=== PATIENT | female | born 1950 | race Caucasian/White ===

== ENCOUNTER 2025-02-22 11:24 | Outpatient (CLI) | payer MEDICARE ==
--- NOTE | 2025-02-22 13:59 | RADIOLOGY REPORT ---
CLINICAL HISTORY: Right knee pain. Unilateral primary osteoarthritis. COMPARISON: None TECHNIQUE: Multisequence multiplanar MRI images of the right knee were obtained without contrast. FINDINGS: Cruciate ligaments: ACL and PCL are intact. Extensor mechanism: Quadriceps mechanism and patellar tendon are intact. Mild edema in the superior l ateral aspect of Hoffa's fat pad, may be seen with impingement. Collateral ligaments: Medial and lateral collateral ligaments are intact and otherwise unremarkable. Menisci: Prominent intrasubstance signal in the body of the medial meniscus extending to the free edg e and femoral articular surfaces, consistent with horizontal tear. There is a longitudinal tear in th e body of the medial meniscus extending to the tibial articular surface, with blunting of the free ed ge of the body of the medial meniscus more anteriorly near the body/anterior horn junction, possible superimposed free edge tear. Cartilage: Chondral thinning in the medial and lateral compartments with superimposed chondral frayin g and [id number] fissuring. Chondral thinning in the patella with superimposed chondral fissuri ng near the median ridge and mild subchondral cystic change.. Bones: No acute fracture or focal marrow contusion. Joint fluid: Small joint effusion. Mildly thickened suprapatellar plica. Other: Popliteal cyst measures up to 4 cm in greatest dimension. IMPRESSION: 1. Horizontal tear in the body of the lateral meniscus. 2. Longitudinal tear in the body of the medial meniscus with adjacent blunting of the free edge more anteriorly in the body of the medial meniscus, possible adjacent free edge tear. 3. Edema in the superolateral aspect of Hoffa's fat pad, may be seen with impingement. 4. Tricompartmental chondromalacia as described above. 5. Small joint effusion. 6. Popliteal cyst.
--- NOTE | 2025-02-22 17:40 | RADIOLOGY REPORT ---
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 FINDINGS: Grade 1 anterolisthesis of L4 on L5. There are degenerative endplate changes including modic endpla te changes with anterior and lateral osteophytes throughout the lumbar spine. The visualized distal s colten cord and conus medullaris are within normal limits. The conus medullaris appears to terminate within normal limits. The visualized retroperitoneal and paraspinal soft tissues are unremarkable. The following axial levels are detailed below: T12-L1: Unremarkable. L1-L2: There is a mild circumferential disc bulge. No significant central canal or neuroforaminal s tenosis. L2-L3: There is a moderate circumferential disc bulge complicated by facet arthropathy associated w ith mild to moderate bilateral neuroforaminal stenosis. No significant central canal stenosis. L3-L4: There is a moderate circumferential disc bulge complicated by facet arthropathy associated w ith mild to moderate bilateral neuroforaminal stenosis. No significant central canal stenosis. L4-L5: There is a moderate circumferential disc bulge complicated by facet arthropathy associated w ith mild to moderate bilateral neuroforaminal stenosis. Central canal measures 8 mm. L5-S1: There is a mild circumferential disc bulge. No significant central canal or neuroforaminal st enosis. IMPRESSION: 1. Multilevel degenerative disease. Grade 1 anterolisthesis of L4 on L5 contributes to moderate centr al canal stenosis. Neural foraminal stenosis as above. HS:Y
== END 2025-02-22 23:59 | disposition home or self-care (01) ==
LOC: MRI02 11:24
PROVIDERS: ATTEND Family Medicine Sports Medicine
DX: S83.241A Other tear of medial meniscus, current injury, right knee, initial encounter (principal); M51.17 Intervertebral disc disorders with radiculopathy, lumbosacral region; M54.50 Low back pain, unspecified; M25.561 Pain in right knee; M17.11 Unilateral primary osteoarthritis, right knee; M47.816 Spondylosis without myelopathy or radiculopathy, lumbar region; M16.11 Unilateral primary osteoarthritis, right hip; M94.261 Chondromalacia, right knee; M43.16 Spondylolisthesis, lumbar region; M48.07 Spinal stenosis, lumbosacral region; M25.461 Effusion, right knee; M71.21 Synovial cyst of popliteal space [Baker], right knee; X58.XXXA Exposure to other specified factors, initial encounter; Y93.89 Activity, other specified; Y92.89 Other specified places as the place of occurrence of the external cause; Y99.8 Other external cause status
CPT/HCPCS: 72148; 73721